=== PATIENT | female | born 1965 | race Caucasian/White ===

== ENCOUNTER 2024-09-19 16:38 | Emergency (ER) | payer BC, SELFPAY ==
[2024-09-19 16:51] VITALS: BP 162/95
[2024-09-19 17:23] LABS: % Basophils 0.2 % (0-2); % Eosinophils 0.9 % (0-6); % Immature Granulocytes 0.2 % (0-0.5); % Lymphocytes 37.4 % (20.5-51.1); % Monocytes 7.7 % (1.7-9.3); % Neutrophils 53.6 % (42.2-75.2); Absolute Eosinophils 0.1 10^3/uL (0-0.7); Absolute Lymphocytes 2.5 10^3/uL (1.2-3.4); Absolute Monocytes 0.5 10^3/uL (0.1-0.6); Absolute Neutrophils 3.6 10^3/uL (1.4-6.5); Hematocrit 37.9 % (37.0-47.0); Hemoglobin 12.8 g/dL (12.0-16.0); Mean Corp Hgb Conc. 33.8 g/dL (33.0-37.0); Mean Corpuscular Hgb 31.9 pg (27.0-31.0); Mean Corpuscular Volume 94.5 fL (81.0-99.0); Mean Platelet Volume 10.4 fL (7.4-10.4); Nucleated Red Blood Cells % 0 %; Platelet Count 203 10^3/uL (130-400); Red Blood Cell Count 4.01 10^6/uL (4.20-5.40); Red Cell Dist. Width 12.6 % (11.5-14.5); White Blood Cell Count 6.6 10^3/uL (4.8-10.8)
[2024-09-19 17:34] LABS: ALT (SGPT) 16 U/L (0-35); AST (SGOT) 26 U/L (14-36); Albumin 4.7 g/dl (3.5-5.0); Alkaline Phosphatase 69 U/L (38-126); Blood Urea Nitrogen 15 mg/dl (7-17); Calcium 9.7 mg/dl (8.4-10.2); Carbon Dioxide 30 mmol/L (22-30); Chloride 103 mmol/L (98-107); Glucose 108 mg/dl (70-99); Potassium 4.2 mmol/L (3.5-5.1); Sodium 140 mmol/L (135-145); Total Bilirubin 0.3 mg/dl (0.2-1.3); eGFR > 60.00
[2024-09-19 17:43] LABS: Troponin I 0.018 ng/ml
[2024-09-19 18:05] LABS: TSH Reflex To Free T4 2.33 uIU/ml (0.47-4.68)
--- NOTE | 2024-09-19 20:03 | ED.GENMED ---
History of Present Illness
General
Chief Complaint: Heart Rate Problem
Source: patient
Exam Limitations: none
Time Seen by Provider: 09/19/24 19:43
History of Present Illness
History of Present Illness:
This is a 59 year old female that comes in with c/o irregular heart rate. States that she was at school today and she ran up the steps and felt lightheaded. States that her Heart rate was elevated. One hour later she was not dizzy but she stil felt
funny. States that she went to the nurse and he took her heart rate and BP. State that her BP was fine but her pulse was irregular. State that she was feeling fine at this point. States that later at home she was on her apple watch and she saw that
her heart rate was going from the 80's to 110. States that she called the PCP as she was still feeling fine but was told to come to the ER. Denies any fever, chills, chest pain, SOB, abd pain, nausea, vomiting, dairrhea, headache, Dizziness,
urinary burning.
Past History
Past History
ED Past Medical History: GERD and Hypothyroidism
ED Past Surgical History: Other (Sinus surgery)
Social History
Tobacco: Former smoker
Alcohol: Occasional
Personal:
Living: with family
Employment: Employed
Review of Systems
Review of Systems
All Other Systems: ROS reviewed and negative except as documented in HPI and ROS
Constitutional: Reports no symptoms; Denies fever or chills
EENT: Reports no symptoms
Respiratory: Reports no symptoms; Denies cough or trouble breathing
Cardiac: Reports other (Irregular heart rate); Denies chest pain
ABD/GI: Reports no symptoms; Denies abdominal pain, nausea, vomiting or diarrhea
: Reports no symptoms; Denies dysuria, frequency or urgency
Musculoskeletal: Reports no symptoms
Skin: Reports no symptoms
Neurological: Reports other (Lightheaded); Denies dizzy or headache
Psychiatric: Reports no symptoms
Phy Exam
General Physical Exam
General Presentation: well appearing and no apparent distress
General age: appears stated age
General Skin: warm and dry
General Habitus: normal
General Mental: alert
General Hydration: dry mucous membranes
ENT Exam
ENT Exam: TM's normal, pharynx normal and neck supple
Eye Exam
Eye Exam: EOMI
Cardiovascular Exam
Cardiovascular Exam: regular rate/rhythm, no edema, no murmur and normal peripheral pulses
Pulmonary Exam
Pulmonary Exam: lungs clear, no respiratory distress, no rales, chest non tender, no crackles, no rhonchi, no wheezing and no cough
Gastrointestinal Exam
Gastrointestinal Exam: normal bowel sounds, non tender, soft, no organomegaly, no pulsatile mass and non distended
Musculoskeletal Exam
Musculoskeletal Exam: full ROM and no edema
Skin Exam
Skin Exam: normal color, warm/dry, no rash and no petechia
Psychiatric Exam
Psychiatric Exam: normal mood/affect
Course
Orders/Labs/Results
Orders:
Orders
09/19/24 16:40
EKG [Electrocardiogram (*1)] Urgent
Reason for Study: Tachycardia
EKG- Treatment ONCE
09/19/24 17:04
Complete Blood Count/With Diff Urgent
Comprehensive Metabolic Panel Urgent
TSH Reflex To Free T4 Urgent
Troponin I Urgent
09/19/24 19:55
Electrocardiogram (*1) Urgent
Reason for Study: Vertigo / Dizzy
Other Reason for Exam: Repeat with Troponin
EKG- Treatment ONCE
Orthostatic VS- Treatment ONCE
0.9% Sodium Chloride 1000 ml [Nss] 1,000 ml IV BOLUS
09/19/24 20:01
Troponin I Urgent
Abnormal Lab Results
09/19/24
17:04
RBC 4.01 L 10^6/uL
(4.20-5.40)
MCH 31.9 H pg
(27.0-31.0)
Glucose 108 H mg/dl
(70-99)
09/19/24 17:04
09/19/24 17:04
Glucose nonfasting. Troponin 0.018, TSH normal at 2.33
second Troponin <0.012
Vital Signs
Initial and Last Documented VS:
Initial Vital Signs
Temp Pulse Resp BP Pulse Ox
98.4 F 73 16 162/95 98
09/19/24 16:51 09/19/24 16:51 09/19/24 16:51 09/19/24 16:51 09/19/24 16:51
Last Documented Vital Signs
Temp Pulse Resp BP Pulse Ox
98.4 F 70 13 139/84 100
09/19/24 16:51 09/19/24 20:15 09/19/24 20:15 09/19/24 20:06 09/19/24 20:19
MDM/Problems Addressed
Differential Diagnosis Includes:
PVC's, tachycardia, Cornoary syndrome
MDM/Problems Addressed:
This is a 59 year old female that comes in with c/o her heart racing and feeling lightheaded today. States that she also was checking her apple watch and her heart rate was going up and down.
Will check labs. ECG and given IV fluids. Will get Orthostatic vitals.
Repeat ECG: rate 68, NSR, Normal axis. Normal QRS, negative for ischemia.
Back into see patient. Explained that her Second Troponin was normal. Patient did not tilt with her Orthostatics. Encouraged patient to increase her water intake to 8-8oz glasses daily. Follow up with the family doctor for recheck. Return with any
concerns .
Chronic conditions affecting care:
Hypothyroid
Acute Exacerbation and/or Progression of Chronic Illness:
NA
*Pulse Oximetry
Patient hypoxic: no
*EKG
Interpreted by ED Provider?: Yes
Heart Rate: 66
Rate: normal
Rhythm: sinus arrhythmia
Tilly: normal axis
Interval: other (Sinus Arrhythmia)
QRS Pattern: normal QRS
Ischemia: no ischemia
*Manager Print Interpretation
Rate: normal
Heart Rate: 71
Rhythm: sinus
*Critical Care Note
Total Time (30-74mins, 75-104mins- exclusive of procedures): Not Applicable
ED Attending Note
-
Portions of this chart may have been created with voice recognition software.� Occasional wrong word or��sound alike� substitutions may have occurred due to the inherent limitations of voice recognition software.
Discharge Plan
Departure
Patient Disposition: Home (Routine Discharge)
Date of Disposition: 09/19/24
Time of Disposition: 20:56
Patient with high blood pressure during this ER visit?: Yes
Condition: Good
Covid-19: Not Applicable
Discharge Problem:
Tachycardia
Instructions: Tachycardia, BLOOD PRESSURE
Prescriptions:
No Action
oxycodone-acetaminophen 5 MG/325 MG tablet
1 tab PO Q4HPRN PRN (Reason: severe pain) Qty: 20 0RF
levothyroxine 100 MCG tablet
100 mcg PO DAILY
Activity Restrictions/Additional Instructions:
As discussed, your blood work is normal. Your ECG's are normal. Please increase your water intake to 8-8oz glasses daily. Please follow up with the family doctor for recheck. He may wish for you to wear Holter monitor. IF YOU HAVE CHEST PAIN OR YOU
HAVE ANY OTHER CONCERNS PLEASE RETURN TO THE EMERGENCY ROOM.
Interventions
Interventions:
ED- Cardiac Assessment Last Done: 09/19/24 20:00
ED- Pulmonary Assessment Last Done: 09/19/24 20:00
Discharge Date and Time
Print Language: GERMAN
[2024-09-19 20:04] VITALS: BP 139/84; BP 146/89; BP 148/80; PULSE 66; PULSE 70; PULSE 93
[2024-09-19 20:05] VITALS: BP 146/89
[2024-09-19 20:06] VITALS: BP 139/84
[2024-09-19] MEDS: NSS 1000 IV (20:08)
[2024-09-19 20:36] LABS: Troponin I < 0.012 ng/ml
[2024-09-19 21:00] VITALS: BP 140/86
== END 2024-09-19 21:13 | disposition home or self-care (01) ==
LOC: EMR 16:38
PROVIDERS: Clinical Nurse Specialist Family Health; Student in an Organized Health Care Education/Training Program; EMERGENCY PHYSICIAN Emergency Medicine; FAMILY PHYSICIAN Family Medicine
DX: R00.0 Tachycardia, unspecified (principal); K21.9 Gastro-esophageal reflux disease without esophagitis; E03.9 Hypothyroidism, unspecified; Z87.891 Personal history of nicotine dependence
CPT/HCPCS: 99283; 96360; 80053; 84443; 84484; 85025; 93005

== ENCOUNTER 2025-07-23 06:30 | Day surgery (SDC) | payer BC, SELFPAY | END 2025-07-23 15:15 | disposition home or self-care (01) | LOC: GI 06:30 | PROVIDERS: ATTENDING PHYSICIAN Internal Medicine | DX: Z12.11 Encounter for screening for malignant neoplasm of colon (principal); K64.9 Unspecified hemorrhoids; D12.0 Benign neoplasm of cecum; D12.5 Benign neoplasm of sigmoid colon | CPT/HCPCS: 45385; 45380; 88305 ==

== ENCOUNTER → 2025-07-30 09:30 | Outpatient (REF) | payer BC, SELFPAY | LOC: RAD 09:30 | PROVIDERS: ATTENDING PHYSICIAN Otolaryngology; FAMILY PHYSICIAN Family Medicine | DX: K21.9 Gastro-esophageal reflux disease without esophagitis (principal); R13.12 Dysphagia, oropharyngeal phase | CPT/HCPCS: 74210 ==

== ENCOUNTER → 2025-08-16 07:49 | Outpatient (REF) | payer BC, SELFPAY | LOC: RAD 07:49 | PROVIDERS: ATTENDING PHYSICIAN Physician Assistant; FAMILY PHYSICIAN Physician Assistant Medical | DX: Z00.01 Encounter for general adult medical examination with abnormal findings (principal); Z13.820 Encounter for screening for osteoporosis | CPT/HCPCS: 77080 ==

== ENCOUNTER → 2025-09-11 08:41 | Outpatient (REF) | payer BC, SELFPAY | LOC: RST 08:41 | PROVIDERS: ATTENDING PHYSICIAN Otolaryngology; FAMILY PHYSICIAN Physician Assistant Medical | DX: R13.12 Dysphagia, oropharyngeal phase (principal) | CPT/HCPCS: 74230; 92611 ==